=== PATIENT | female | born 1970 | race Hispanic/Latino ===

== ENCOUNTER 2022-10-28 14:21 | Emergency (ER) | payer MEDICARE, SELFPAY ==
[2022-10-28 14:28] VITALS: BP 135/86; PULSE 110; RESP 16; TEMP 36.3; O2SAT 100; BMI 23.1
--- NOTE | 2022-10-28 15:19 | ED.PSYCH ---
HPI - Psych General Chief Complaint: Psychiatric Symptoms Stated Complaint: mental health Time Seen by Provider: 10/28/22 15:18 Source: patient, family (sister) and RN notes reviewed Mode of arrival: Ambulatory Limitations: no limitations History of Present Illness HPI Narrative: This is a 52-year-old female with history of schizophrenia who was involuntarily placed in [place] for 3 years and was recently escorted here to [place] where her sister met with her and then has flown here to [place] to live with family. Patient and sister both state she did have involuntary placement sometimes for several months before she had gone to [place]. 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 She states at this time she is had no thoughts of harming herself or others. She states she has had suicidal ideation and attempt in the past attempted with an overdose of 100 tablets of aspirin but does not feel this way at this time. Patient has been having some occasional hallucinations which distract her but patient is able to engage in conversation. She does not have a psychiatrist or [facility] or primary care follow-up here locally. They states they were given prescriptions enough to get them until they arrived to the [facility] but will run out shortly. They did arrive with discharge summary but is in [place]. Patient also has all of her prescriptions with her and we were able to look these up for the [place] equivalent. Patient does not use tobacco, alcohol or illicit. No prior surgeries. No other medical issues described accepts sister states that her thyroid is enlarged and she had enlargement in the past. Related Data Home Medications Medication Instructions Recorded Confirmed Levomepromazine 25 mg PO BEDTIME sleep aid 10/28/22 biperiden 2 mg tablet 2 mg PO Q8HR 10/28/22 10/28/22 clozapine 100 mg tablet 100 mg PO DAILY 10/28/22 10/28/22 clozapine 100 mg tablet 150 mg PO DAILY 10/28/22 10/28/22 clozapine 200 mg tablet 200 mg PO BEDTIME 10/28/22 10/28/22 diazepam 10 mg tablet 10 mg PO DAILY 10/28/22 10/28/22 haloperidol 5 mg tablet 5 mg PO DAILY 10/28/22 10/28/22 promethazine 25 mg tablet 25 mg PO Q4-6H PRN Nausea 10/28/22 10/28/22 propranolol 40 mg tablet 40 mg PO DAILY 10/28/22 10/28/22 Previous Rx's Medication Instructions Recorded clozapine 50 mg tablet See Rx Instructions .Route 10/28/22 .COMPLEX #180 tabs diazepam 10 mg tablet 10 mg PO BEDTIME #20 tabs 10/28/22 haloperidol 10 mg tablet 10 mg PO BEDTIME #20 tabs 10/28/22 propranolol 40 mg tablet 40 mg PO DAILY #20 tabs 10/28/22 Review of Systems Review of Systems ROS Unobtainable: All systems reviewed & are unremarkable except as noted in HPI and below Exam Narrative Exam Narrative: GENERAL: Alert and oriented x three, well-dressed female, patient is distracted what what appears to be internal stimuli occasionally but interacts and answers questions otherwise appropriately. Patient does have flat affect. HEENT: Head normocephalic, atraumatic, EOMI, pupils reactive, face symmetric, moist mucous membranes NECK: Supple, full range of motion, patient does have enlarged thyroid that is firm, nontender CARDIOVASCULAR: Regular rate and rhythm without murmurs, rubs or gallops. RESPIRATORY: Breath sounds equal bilaterally, no wheezes rales or rhonchi. ABDOMEN: Soft, nontender. Normoactive bowel sounds all 4 quadrants. No guarding or rebound, rigidity, no mass : No CVA tenderness EXTREMITIES: Normal range of motion, no clubbing or edema. Neurovascularly intact NEUROLOGICAL: Cranial nerves II through XII grossly intact. Moving all extremities SKIN: Warm, dry, no petechiae, no rashes or lesions. PSYCH: Denies suicidal ideation or intent, denies any homicidal thoughts. Sister notes internal stimuli although patient initially denies hallucinations. Initial Vital Signs Initial Vital Signs: Vital Signs Temperature 97.3 F L 10/28/22 14:28 Pulse Rate 110 H 10/28/22 14:28 Respiratory Rate 16 10/28/22 14:28 Blood Pressure 135/86 10/28/22 14:28 Pulse Oximetry 100 10/28/22 14:28 Oxygen Delivery Method 10/28/22 14:28 Course Orders Ordered: ED Orders 10/28/22 14:00 CBC Auto Diff [Complete Blood Count AUTO DIFF] Stat CMP [Comprehensive Metabolic Panel] Stat Free T4, Direct Thyroxine Stat Lipase Stat TSH w/ Reflex to FT4 Stat 10/28/22 14:25 [place] to [facility] [place] [facility] Stat 10/28/22 15:42 US thyroid Stat Vital Signs Vital signs: Vital Signs - 8 hr 10/28/22 14:28 10/28/22 17:58 Temperature 97.3 F L Pulse Rate 110 H 102 H Respiratory Rate 16 18 Blood Pressure 135/86 132/85 Pulse Oximetry 100 99 Oxygen Delivery Method Room Air Room Air MDM - Psych Lab Data Result diagrams: 10/28/22 14:00 10/28/22 14:00 Labs: Lab Results 10/28/22 10/28/22 10/28/22 Range/Units 14:00 14:00 14:00 WBC 6.7 (4.5-11.0) X10^3/uL RBC 4.34 (4.0-5.2) X10^6/uL Hgb 12.6 (12.0-16.0) g/dL Hct 38.3 (36-46) % MCV 88.2 (80-100) fL MCH 29.0 (26-34) PG MCHC 32.9 (30-36) % RDW 12.8 (11.6-14.8) % Plt Count 208 (150-400) X10^3/uL Neut % (Auto) 58.9 (50-75) % Lymph % (Auto) 24.6 L (25-40) % [place] % (Auto) 9.5 (3-14) % Eos % (Auto) 6.4 H (2-4) % Baso % (Auto) 0.6 (0-2) % Neut # (Auto) 4000 (2222-0993) /uL Lymph # (Auto) 1700 (8639-2650) /uL [place] # (Auto) 600 (0-900) /uL Eos # (Auto) 400 (0-450) /uL Baso # (Auto) 0 (0-100) /uL Sodium 140 (137-145) mmol/L Potassium 3.7 (3.4-5.1) mmol/L Chloride 102 (98-107) mmol/L Carbon Dioxide 30 (22-32) mmol/L BUN 8 (7-17) mg/dL Creatinine 0.59 (0.52-1.04) mg/dL Estimated GFR > 60 (>60) mL/min BUN/Creatinine Ratio 13.6 (6-22) Glucose 103 H (70-100) mg/dL Calcium 8.7 (8.4-10.2) mg/dL Total Bilirubin 0.3 (0.2-1.3) mg/dL AST 24 (14-36) IU/L ALT 19 (<35) IU/L Alkaline Phosphatase 103 (38-126) U/L Total Protein 7.3 (6.3-8.2) g/dL Albumin 3.9 (3.5-5.0) g/dL Globulin 3.4 (1.7-4.1) g/dL Albumin/Globulin Ratio 1.1 (1.0-2.8) Lipase (23-300) U/L TSH 0.33 L (0.47-4.68) uIU/mL Free T4 1.19 (0.78-2.19) ng/dL 10/28/22 Range/Units 14:00 WBC (4.5-11.0) X10^3/uL RBC (4.0-5.2) X10^6/uL Hgb (12.0-16.0) g/dL Hct (36-46) % MCV (80-100) fL MCH (26-34) PG MCHC (30-36) % RDW (11.6-14.8) % Plt Count (150-400) X10^3/uL Neut % (Auto) (50-75) % Lymph % (Auto) (25-40) % [place] % (Auto) (3-14) % Eos % (Auto) (2-4) % Baso % (Auto) (0-2) % Neut # (Auto) (5060-8204) /uL Lymph # (Auto) (8663-1417) /uL [place] # (Auto) (0-900) /uL Eos # (Auto) (0-450) /uL Baso # (Auto) (0-100) /uL Sodium (137-145) mmol/L Potassium (3.4-5.1) mmol/L Chloride (98-107) mmol/L Carbon Dioxide (22-32) mmol/L BUN (7-17) mg/dL Creatinine (0.52-1.04) mg/dL Estimated GFR (>60) mL/min BUN/Creatinine Ratio (6-22) Glucose (70-100) mg/dL Calcium (8.4-10.2) mg/dL Total Bilirubin (0.2-1.3) mg/dL AST (14-36) IU/L ALT (<35) IU/L Alkaline Phosphatase (38-126) U/L Total Protein (6.3-8.2) g/dL Albumin (3.5-5.0) g/dL Globulin (1.7-4.1) g/dL Albumin/Globulin Ratio (1.0-2.8) Lipase 152 (23-300) U/L TSH (0.47-4.68) uIU/mL Free T4 (0.78-2.19) ng/dL Imaging Data thyroid US: Radiologist's Impression: Close Thyroid Ultrasound (Signed) Rehan Sumneric - 10/28/22 Launch?[place] [address] Ultrasound Report Signed Patient: Campos Parra MR#: [id number] : 1970 Acct:[id number] Age/Sex: 52 / F Date of Service: 10/28/22 Loc: ED Accession Number: [id number] ?? Procedure: US thyroid Ordering Provider: Agnes Johnson D.O. PROCEDURE:? US THYROID ? INDICATIONS:? enlarged thyroid, psych hx ? TECHNIQUE:? Real-time scanning was performed of the thyroid gland, with image documentation.? ? COMPARISON:? None. ? FINDINGS:? Right:? Thyroid lobe measures 4.8 x 1.7 x 2.0 cm, and is homogeneous in echotexture.? Left:? Thyroid lobe measures 5.7 x 2.9 x 2.8 cm, and contains multiple nodules. Isthmus:? 3 mm thick.? ? Nodule number:? 1 Location:? Left middle pole/lower pole Size:? 4.9 x 2.9 x 4.3 cm.? Composition:? Predominantly solid Echogenicity:? Hypoechoic Shape:? wider than tall. Margins:? Ill-defined Echogenic foci:? None Total points:? 4 ACR TI-RADS category:? Moderately suspicious ? Nodule number:? 2 Location:? Left middle pole Size:? 1.6 x 1.3 x 1.8 cm.? Composition:? Predominantly solid Echogenicity:? Isoechoic Shape:? wider than tall. Margins:? Smooth Echogenic foci:? None Total points:? 3 ACR TI-RADS category:? Mildly suspicious ? Nodule number:? 3 Location:? Left upper pole Size:? 1.8 x 1.0 x 1.2 cm.? Composition:? Solid Echogenicity:? Isoechoic Shape:? wider than tall. Margins:? Smooth Echogenic foci:? None Total points:? 3 ACR TI-RADS category:? Mildly suspicious ? Nodule number:? 4 Location:? Isthmus Size:? 2.2 x 0.9 x 1.6 cm Composition:? Predominantly cystic Echogenicity:? Anechoic Shape:? wider than tall. Margins:? Smooth Echogenic foci:? None Total points:? 0 ACR TI-RADS category:? Benign ? ? IMPRESSION:? Multinodular thyroid.? Findings include a moderately suspicious left thyroid nodule of 4.9 cm maximum diameter.? Based on the chart below, ultrasound-guided FNA of this lesion is recommended for tissue diagnosis.? 2 of the other lesions are large enough to require follow-up ultrasound, 1st beginning 12 months from now. ? ? ACR TI-RADS definitions and recommendations:? TI-RADS 1 (benign): 0 points.? FNA not needed. TI-RADS 2 (not suspicious): 2 points.? FNA not needed. TI-RADS 3 (mildly suspicious): 3 points. * FNA if 2.5 cm or larger, follow up if 1.5 cm or larger (at 1, 3, and 5 years). TI-RADS 4 (moderately suspicious): 4-6 points.? * FNA if 1.5 cm or larger, follow up if 1 cm or larger (at 1, 2, 3, and 5 years).? TI-RADS 5 (highly suspicious): 7 points or more.? * FNA if 1 cm or larger, follow up if 0.5 cm or larger (every year for 5 years).? Dictated by: Jarrod Sumner M.D. on 10/28/2022 at 16:34 ? ? Approved by: Jarrod Sumner M.D. on 10/28/2022 at 16:52?? MDM Narrative Medical decision making narrative: 52-year-old female who presents with her sister with history of chronic schizophrenia, patient has recently been brought to the [place] states to return after having a prolonged involuntary psychiatric placement. She presents with her medications and is about to run out. Patient did have basic labs checked noted to have thyromegaly, she has enlarged thyroid nodule which is multinodular T SAH is low but T4 is appropriate. Patient referred to have final needle aspiration and further workup and both her and her sister and I discussed that she will need yearly aspiration for 5 years based on the size of the largest nodule. Will attempt to feel some of patient's home medications and these were sent to [facility]. [facility] locally did not have them so were sent to [facility] in [place]. about 2 hours after patient had been discharged received a phone call the pharmacy, reviewed patient's labs but I am not part of the registry for this medication so they may not be able to fill it. Patient is in process of establishing with Psychiatry and a counselor locally as well as primary care so she does not have physician currently who can otherwise prescribed. Discharge Plan Departure Patient Disposition: Home Clinical Impression: Chronic schizophrenia, Multinodular thyroid Activity Restrictions/Additional Instructions: Please follow-up with primary care, there is also referral for Psychiatry included. I would recommend calling local mental health counselors and psychiatrist to see about follow-up. [facility] will call to follow up with you on Monday or Monday morning around 8am. Please callback if you miss there call. Your labs and thyroid ultrasound do show changes to your thyroid it is recommended that you have ultrasound-guided fine needle aspiration of the lesion, referral to ENT has been given. Please call 1st thing Monday morning to set this up. I have refilled some of your medications but not all of them. Prescription sent to [facility] in [place]. If you're feeling suicidal or having suicidal thoughts, contact the suicide hotline (this is also the [employer] of [facility] Resource number they can help with counseling and follow-up and can be used by patient or family): . Please return for worsening symptoms if you feel unsafe or having thoughts of harming yourself or others or having other new or concerning changes Prescriptions: New haloperidol 10 mg tablet 10 mg PO BEDTIME Qty: 20 0RF diazepam 10 mg tablet 10 mg PO BEDTIME Qty: 20 0RF clozapine 50 mg tablet See Rx Instructions .ROUTE .COMPLEX Qty: 180 0RF Rx Instructions: Take 2 tablets Q am, 3 tablets at noon and 4 tablets Q HS propranolol 40 mg tablet 40 mg PO DAILY Qty: 20 0RF No Action haloperidol 5 mg Tablet 5 mg PO DAILY clozapine 100 mg Tablet 100 mg PO DAILY Rx Instructions: 100mg AM, 150mg noon, 200mg bedtime clozapine 100 mg Tablet 150 mg PO DAILY biperiden 2 mg Tablet 2 mg PO Q8HR propranolol 40 mg Tablet 40 mg PO DAILY promethazine 25 mg Tablet 25 mg PO Q4-6H PRN (Reason: Nausea) diazepam 10 mg Tablet 10 mg PO DAILY clozapine 200 mg Tablet 200 mg PO BEDTIME Levomepromazine 25 mg PO BEDTIME Referrals: Carlos Alex MD [Physician] - Ltarell Beauchamp MD [Physician] - MiscellaneousDoctor MD [Primary Care Provider] - Stand Alone Forms: Patient Portal/API
--- NOTE | 2022-10-28 15:42 | DI.US.S_ITS ---
PROCEDURE: US THYROID INDICATIONS: enlarged thyroid, psych hx TECHNIQUE: Real-time scanning was performed of the thyroid gland, with image documentation. COMPARISON: None. FINDINGS: Right: Thyroid lobe measures 4.8 x 1.7 x 2.0 cm, and is homogeneous in echotexture. Left: Thyroid lobe measures 5.7 x 2.9 x 2.8 cm, and contains multiple nodules. Isthmus: 3 mm thick. Nodule number: 1 Location: Left middle pole/lower pole Size: 4.9 x 2.9 x 4.3 cm. Composition: Predominantly solid Echogenicity: Hypoechoic Shape: wider than tall. Margins: Ill-defined Echogenic foci: None Total points: 4 ACR TI-RADS category: Moderately suspicious Nodule number: 2 Location: Left middle pole Size: 1.6 x 1.3 x 1.8 cm. Composition: Predominantly solid Echogenicity: Isoechoic Shape: wider than tall. Margins: Smooth Echogenic foci: None Total points: 3 ACR TI-RADS category: Mildly suspicious Nodule number: 3 Location: Left upper pole Size: 1.8 x 1.0 x 1.2 cm. Composition: Solid Echogenicity: Isoechoic Shape: wider than tall. Margins: Smooth Echogenic foci: None Total points: 3 ACR TI-RADS category: Mildly suspicious Nodule number: 4 Location: Isthmus Size: 2.2 x 0.9 x 1.6 cm Composition: Predominantly cystic Echogenicity: Anechoic Shape: wider than tall. Margins: Smooth Echogenic foci: None Total points: 0 ACR TI-RADS category: Benign IMPRESSION: Multinodular thyroid. Findings include a moderately suspicious left thyroid nodule of 4.9 cm maximum diameter. Based on the chart below, ultrasound-guided FNA of this lesion is recommended for tissue diagnosis. 2 of the other lesions are large enough to require follow-up ultrasound, 1st beginning 12 months from now. ACR TI-RADS definitions and recommendations: TI-RADS 1 (benign): 0 points. FNA not needed. TI-RADS 2 (not suspicious): 2 points. FNA not needed. TI-RADS 3 (mildly suspicious): 3 points. * FNA if 2.5 cm or larger, follow up if 1.5 cm or larger (at 1, 3, and 5 years). TI-RADS 4 (moderately suspicious): 4-6 points. * FNA if 1.5 cm or larger, follow up if 1 cm or larger (at 1, 2, 3, and 5 years). TI-RADS 5 (highly suspicious): 7 points or more. * FNA if 1 cm or larger, follow up if 0.5 cm or larger (every year for 5 years). Dictated by: Jarrod Sumner M.D. on 10/28/2022 at 16:34 Approved by: Jarrod Sumner M.D. on 10/28/2022 at 16:52
[2022-10-28 16:08] LABS: Add Manual Diff / Slide Review NO; Basophils Absolute Auto 0 /uL (0-100); Basophils Percent Auto 0.6 % (0-2); Eosinophils Absolute Auto 400 /uL (0-450); Eosinophils Percent Auto 6.4 % (2-4); Hematocrit 38.3 % (36-46); Hemoglobin 12.6 g/dL (12.0-16.0); Lymphocytes Absolute Auto 1700 /uL (1100-4500); Lymphocytes Percent Auto 24.6 % (25-40); Mean Corpuscular HGB Conc 32.9 % (30-36); Mean Corpuscular Volume 88.2 fL (80-100); Monocytes Absolute Auto 600 /uL (0-900); Monocytes Percent Auto 9.5 % (3-14); Neutrophils Absolute Auto 4000 /uL (1500-7000); Neutrophils Percent Auto 58.9 % (50-75); Platelet Count 208 X10^3/uL (150-400); Red Blood Cell Count 4.34 X10^6/uL (4.0-5.2); Red Cell Distribution Width 12.8 % (11.6-14.8); White Blood Cell Count 6.7 X10^3/uL (4.5-11.0)
[2022-10-28 16:29] LABS: Alanine Aminotransferase 19 IU/L (<35); Albumin 3.9 g/dL (3.5-5.0); Albumin Globulin Ratio 1.1 (1.0-2.8); Alkaline Phosphatase 103 U/L (38-126); Aspartate Aminotransferase 24 IU/L (14-36); BUN Creatinine Ratio 13.6 (6-22); Bilirubin Total 0.3 mg/dL (0.2-1.3); Blood Urea Nitrogen 8 mg/dL (7-17); Calcium 8.7 mg/dL (8.4-10.2); Carbon Dioxide 30 mmol/L (22-32); Chloride 102 mmol/L (98-107); Estimated Glomerular Filt Rate > 60 mL/min (>60); Globulin 3.4 g/dL (1.7-4.1); Glucose 103 mg/dL (70-100); HEMOLYSIS < 15 (0-50); Lipase 152 U/L (23-300); Potassium 3.7 mmol/L (3.4-5.1); Sodium 140 mmol/L (137-145); Total Protein 7.3 g/dL (6.3-8.2)
[2022-10-28 17:02] LABS: TSH w/ Reflex to FT4 0.33 uIU/mL (0.47-4.68)
[2022-10-28 17:35] LABS: Free T4, Direct Thyroxine 1.19 ng/dL (0.78-2.19)
[2022-10-28 17:58] VITALS: BP 132/85; PULSE 102; RESP 18; O2SAT 99
--- NOTE | 2022-10-30 11:00 | CM.SWNOTE ---
Patient is a 52 yo female who was admitted to [facility] ED on 10/28/22 for Mental Health. Pt has MCR for insurance and her PCP is not yet established. EMR was reviewed. Per ED MD, ASSEMBLER ADJUSTER consult placed as pt has a long mental health hx and in need of coordination of services. ASSEMBLER ADJUSTER was not on shift when pt was in the ED and MD requested ASSEMBLER ADJUSTER follow up. Per ED MD, pt was just flown back from [place] where she had initially voluntarily flown to [place] but was then Involuntarily Detained for Mental Health needs for 3 years and was just released back into the care of her family in [facility]. Pt was denying S.I. or H.I. although admits to a hx of intentionally overdose a few years ago and has a hx of Inpt MH tx a few times prior to her trip to [place]. Pt admitted to some current internal stimulation of hallucinations without immediate negative impact to her ADLs but did have flat affect, able to answer some questions, but a poor historian. Most information was gathered by pt's sister Tiffany ([phone]) who was bedside and supportive and attempting to coordinate services for pt. Primary reason for ED visit was pt was discharged from [place] with only a couple days supply of significant Psych meds and pt still needing to get established with Psychiatrist, PCP, mental health counselor. Sister attempting to help with this but will take at least a week or more to set up. Pt staying with her sister in [place]. ED MD consulted with Psychiatrist at [facility] who agrees for pt to follow up with him outpt this week and provided some med management recommendations as pt's current meds not able to be filled until established with PCP or Psychiatrist. ED provided pt and sister information on [facility] crisis line and requested a follow up phone call in a day or two. SW attempted to call sister to follow up and left msg with call back number in case they have needs. SW called [facility] and confirmed they have sister on the list for follow up phone call tomorrow Mon10/31/22 at 0800 to see if further services needed or [facility] team to assist if pt not stable. Plan: SW to follow for possible call back from pt's sister Tiffany in case further ASSEMBLER ADJUSTER needs identified and [facility] to place call to sister tomorrow Monday for ongoing coordination of care needs. MARK Greer
== END 2022-10-28 17:59 | disposition home or self-care (01) ==
PROVIDERS: Emergency Provider Emergency Medicine
DX: F20.9 Schizophrenia, unspecified (principal); E04.2 Nontoxic multinodular goiter
CPT/HCPCS: 36415; 76536; 80053; 83690; 84439; 84443; 85025; 99284